=== PATIENT | female | born 1950 | race Caucasian/White ===

== ENCOUNTER → 2017-02-11 | Outpatient (CLI) | payer OTHER, BC | LOC: RAD 12:40 | DX: J18.9 Pneumonia, unspecified organism (principal); J44.9 Chronic obstructive pulmonary disease, unspecified; M47.894 Other spondylosis, thoracic region; J84.10 Pulmonary fibrosis, unspecified ==

== ENCOUNTER → 2017-02-21 | Outpatient (CLI) | payer OTHER, BC | LOC: RAD 12:22 | DX: R06.00 Dyspnea, unspecified (principal) ==